=== PATIENT | female | born 1940 | race Caucasian/White ===

== ENCOUNTER 2018-12-25 06:53 | Day surgery (SDC) | payer MEDICARE, OTHER ==
[2018-12-25] MEDS ORDERED: Midazolam 1 MG/ML 2 ML SDV ONE (06:57)
[2018-12-25] MEDS ORDERED: Propofol 200 MG/20 ML SDV ONE ×2 (06:57→08:34)
[2018-12-25] MEDS ORDERED: Sodium Chloride 0.9% 10 ML Syringe FLUSH PRN ×2 (07:00→08:00)
[2018-12-25] MEDS ORDERED: Sodium Chloride 0.9% 1,000 ML IV SCH ×2 (07:00→08:00)
[2018-12-25] MEDS ORDERED: Albuterol/Ipratropium 3.0-0.5 MG/3 ML Neb Soln NEB ONE (07:50)
[2018-12-25] MEDS ORDERED: Propofol 200 MG/20 ML SDV IV ONE (08:13)
[2018-12-25] MEDS ORDERED: Midazolam 1 MG/ML 2 ML SDV IV ONE (08:13)
[2018-12-25 10:30] VITALS: BP 137/59; PULSE 78
--- NOTE | 2018-12-25 11:43 | PCM.PRNOTE ---
- Free Text/Narrative Note: PROCEDURE PERFORMED: Esophagogastroduodenoscopy with biopsy and colonoscopy with biopsy PRE-PROCEDURE DIAGNOSIS/INDICATION FOR PROCEDURE: Iron deficiency anemia, +FIT, last [id number] without abnormality CONSENT: Informed consent was obtained prior to the procedure after discussion of the risks (including pain, bleeding, infection, perforation, need for further procedures, missed polyps, adverse reaction to anesthesia, cardiovascular event) , benefits and alternatives and expected outcomes. Verbal consent given and consent form signed. PROCEDURAL PAUSE: Completed SEDATION: Per anesthesia DESCRIPTION OF PROCEDURE: Patient was brought back to the operating room and placed in a left lateral decubitus position. Bite block placed. After adequate sedation and anesthetic was administered, endoscope was inserted into the patient's mouth and was passed easily through the esophagus and stomach into the duodenum without difficulty. Examined duodenum normal appearing. Pylorus with multilobed polypoid mass; biopsies obtained. GE junction with solitary polyp measuring > 1cm with significant friability. Remainder of stomach, including viewing in retroflexion, and esophagus normal appearing. Gastroesophageal junction at 38cm from the incisors. The scope was removed without difficulty. Patient tolerated the procedure well. No complications. Patient was then repositioned to the left lateral decubitus position. Rectal exam was performed revealing multiple external hemorrhoids. A lubricated Olympus Video Colonoscope was inserted into the rectum and air insufflation was performed. The colonoscope was advanced through the rectum, sigmoid, descending , transverse, and ascending colon without difficulties. The cecum was reached and the ileocecal valve as well as the appendiceal orifice were identified and pictorially documented. After adequate visualization of the cecum, the scope was withdrawn, giving 360-degree views of the colonic mucosa and retroflexion was performed in the rectum with the following findings noted: Ileocecal valve: Normal Cecum: One <0.5cm sessile polyp removed with cold forceps with complete removal and subsequent hemostasis noted Ascending colon: Normal Hepatic flexure: Normal Transverse colon: One approximately 1cm sessile polyp removed with electrocautery loops with complete removal and subsequent hemostasis noted Splenic flexure: Normal Descending colon: Two <1cm sessile polyps removed with cold forceps with complete removal and subsequent hemostasis noted Sigmoid colon: Scattered small diverticuli Rectum: External hemorrhoids The scope was straightened, air suction performed, and the scope withdrawn without complication. Preparation adequacy . IMPRESSION: Esophagogastroduodenoscopy performed revealing: - Multilobed polypoid mass at the pylorus, pathology now pending - Solitary polyp measuring >1cm at the GE junction Colonoscopy performed revealing: - Four polyps s/p complete removal, pathology now pending - Scattered small diverticuli - External hemorrhoids PLAN: - Referral for EGD with gastroenterology at [facility] for complete removal of gastric polyp and masses. - Will contact the patient when pathology results obtained today received.
== END 2018-12-25 11:35 | disposition home or self-care (01) ==
LOC: KA.SDS 06:53
PROVIDERS: ATTEND Family Medicine
DX: D50.9 Iron deficiency anemia, unspecified (principal); R19.5 Other fecal abnormalities; K64.4 Residual hemorrhoidal skin tags; K57.30 Diverticulosis of large intestine without perforation or abscess without bleeding; K31.89 Other diseases of stomach and duodenum; D12.0 Benign neoplasm of cecum; D12.4 Benign neoplasm of descending colon; D12.5 Benign neoplasm of sigmoid colon; J45.40 Moderate persistent asthma, uncomplicated; E11.9 Type 2 diabetes mellitus without complications; E78.00 Pure hypercholesterolemia, unspecified; E66.3 Overweight; Z68.27 Body mass index [BMI] 27.0-27.9, adult; Z79.4 Long term (current) use of insulin
CPT/HCPCS: 00813; 43239; 45380; 45388; 82962; 88305; 94640; J2250; J2704; J7030; J7620-GY

== ENCOUNTER 2024-03-09 16:30 | Emergency (ER) | payer MEDICARE, OTHER ==
[2024-03-09] MEDS ORDERED: Sodium Chloride 0.9% 10 ML Syringe FLUSH PRN (16:44)
[2024-03-09 16:56] LABS: BASOPHILS ABSOLUTE AUTO 0.04 10^3/uL (0.00-0.10); BASOPHILS PERCENT AUTO 0.4 % (0.0-1.0); EOSINOPHILS ABSOLUTE AUTO 0.16 10^3/uL (0.10-0.30); EOSINOPHILS PERCENT AUTO 1.8 % (1.0-3.0); HEMATOCRIT 34.2 % (37.0-47.0); HEMOGLOBIN 11.5 g/dL (12.0-16.0); IMMATURE GRAN ABSOLUTE AUTO 0.02 10^3/uL (0.00-0.50); IMMATURE GRAN PERCENT AUTO 0.2 % (0.0-5.0); LYMPHOCYTES ABSOLUTE AUTO 1.63 10^3/uL (1.00-4.00); LYMPHOCYTES PERCENT AUTO 18.2 % (20.0-40.0); MEAN CORPUSCULAR HEMOGLOBIN 28.3 pg (27.0-31.0); MEAN CORPUSCULAR HGB CONC 33.6 g/dL (32.0-36.0); MEAN PLATELET VOLUME 8.8 fL (7.4-10.4); MONOCYTES ABSOLUTE AUTO 0.78 10^3/uL (0.10-0.80); MONOCYTES PERCENT AUTO 8.7 % (2.0-8.0); NEUTROPHILS ABSOLUTE AUTO 6.33 10^3/uL (2.50-7.00); NEUTROPHILS PERCENT AUTO 70.7 % (50.0-70.0); PLATELET COUNT,PLT 264 10^3/uL (150-400); RED BLOOD CELL COUNT 4.07 10^6/uL (3.80-5.50); RED CELL DISTRIBUTION WIDTH 12.5 % (11.5-14.5); WHITE BLOOD CELL COUNT,WBC 8.96 10^3/uL (5.00-10.00)
[2024-03-09 17:14] LABS: ALANINE AMINOTRANSFERASE,ALT 31 U/L (14-63); ALBUMIN 3.57 g/dL (3.40-5.00); ALKALINE PHOSPHATASE 79 U/L (46-116); ASPARTATE AMNIOTRANSFERASE,AST 24 U/L (15-37); BILIRUBIN TOTAL 0.3 mg/dL (0.2-1.0); BLOOD UREA NITROGEN,BUN 22 mg/dL (7-18); CALCIUM 8.9 mg/dL (8.7-10.3); CARBON DIOXIDE,CO2 24.3 mmol/L (21.0-32.0); CHLORIDE,CL 100 mmol/L (98-107); CREATININE 1.22 mg/dL (0.51-1.17); ESTIMATED GFR 44 mL/min (>=60); GLUCOSE RANDOM 239 mg/dL (70-140); POTASSIUM,K 4.3 mmol/L (3.5-5.1); PROTEIN TOTAL,TP 6.7 g/dL (6.4-8.2); SODIUM,NA 137 mmol/L (136-145)
[2024-03-09 17:21] VITALS: BP 132/32; PULSE 30
== END 2024-03-09 18:50 ==
LOC: KA.ED 16:30
DX: I44.2 Atrioventricular block, complete (principal); I10 Essential (primary) hypertension; J45.909 Unspecified asthma, uncomplicated; E11.9 Type 2 diabetes mellitus without complications; E78.00 Pure hypercholesterolemia, unspecified; Z79.4 Long term (current) use of insulin; Z79.84 Long term (current) use of oral hypoglycemic drugs; Z79.899 Other long term (current) drug therapy
CPT/HCPCS: 80053; 84484; 85025; 99285